=== PATIENT | female | born 1965 | race Caucasian/White ===

== ENCOUNTER 2021-09-21 18:35 | Emergency (ER) | payer OTHER ==
[2021-09-21 19:08] VITALS: BP 131/86; PULSE 83; TEMP 97.8; BMI 23.3
[2021-09-21 20:04] LABS: INR 0.98 (0.83-1.09); PROTHROMBIN TIME (PATIENT) 11.3 SEC (9.7-13.0)
[2021-09-21 20:07] LABS: ACTIVATED PTT 59.7 SECONDS (25.2-36.5)
[2021-09-21 20:10] LABS: HEMOGLOBIN 12.8 G/dL (10.7-15.3); MCH 30.7 pg (25.7-33.7); MCHC 35.5 g/dl (32.0-36.0); MEAN CELL VOLUME 86.3 fl (80-96); MEAN PLT VOLUME 8.6 fl (7.5-11.1); PLATELET COUNT 239.8 10^3/uL (134-434); RBC 4.17 10^6/uL (3.60-5.2); RDW 14.7 % (11.6-15.6); WHITE BLOOD COUNT 7.6 10^3/uL (4.0-10.8)
[2021-09-21 20:20] LABS: PLATELET ESTIMATE ADEQUATE
== END 2021-09-21 20:20 | disposition home or self-care (01) ==
LOC: FER 18:35
DX: M79.81 Nontraumatic hematoma of soft tissue (principal)
CPT/HCPCS: 36415; 85025; 85610; 85730; 99283-25